=== PATIENT | male | born 1975 | race American Indian/Alaskan Native ===

== ENCOUNTER 2019-06-01 10:02 | Emergency (ER) | payer BC ==
[~2019-06-01] VITALS: Ht 190.5 cm; Wt 108.9 kg
[2019-06-01] MEDS ORDERED: ALLEGRA ALLERGY60 MG PO (10:12)
--- NOTE | 2019-06-01 13:58 | EKG ---
[facility] [address] [facility] [place], [place] [address] Signed Normal sinus rhythm Normal ECG No previous ECGs available Confirmed by KY LOUIS DO ([id number]) on 06/01/2019 1:58:22 PM Electronically Signed By: KY LOUIS DO 06/01/19 1358 PATIENT NAME: CASSY BELL Electrocardiogram DATE OF : 77 PHYSICIAN: KY LOUIS DO REPORT #: [id number] REPORT IS CONFIDENTIAL AND NOT TO BE RELEASED WITHOUT AUTHORIZATION
== END 2019-06-01 11:15 | disposition home or self-care (01) ==
LOC: ED 10:02
DX: R07.9 Chest pain, unspecified (principal); Z79.899 Other long term (current) drug therapy
CPT/HCPCS: 71045; 80053; 83735; 84484; 85025; 93005; 93010; 99285-25

== ENCOUNTER 2024-06-03 05:50 | Day surgery (SDC) | payer BC, OTHER ==
[2024-05-31 09:19] VITALS: BP 150/89
[~2024-06-03] VITALS: Ht 190.5 cm; Wt 109.1 kg
[~2024-06-03 05:50] MED LIST: ALLEGRA ALLERGY60 MG PO; MIDAZOLAM HCL 5 MG/5 ML VIAL IV PRN; fentaNYL citrate 100 MCG/2 ML VIAL IV PRN
[2024-06-03 05:59] VITALS: BP 144/85
--- NOTE | 2024-06-03 06:06 | NUR ---
FATHER WITH PT NOT SURE IF WAITING.
[2024-06-03] MEDS ORDERED: IBLOOD GLUCOSE TEST STRIP 1 EA TEST VI PRN (07:00)
[2024-06-03] MEDS ORDERED: LACTATED RINGER'S 1,000 ML IV SCH (07:00)
[2024-06-03] MEDS ORDERED: LIDOCAINE HCL 1% 5 ML SDV INJ ONE (07:00)
[2024-06-03] MEDS ORDERED: propofoL 200 MG/20 ML VIAL ONE ×2 (07:17→07:47)
[2024-06-03] MEDS ORDERED: fentaNYL citrate 100 MCG/2 ML VIAL ONE (07:17)
[2024-06-03] MEDS ORDERED: LIDOCAINE HCL 2% 5 ML SDV ONE (07:17)
--- NOTE | 2024-06-03 07:45 | NUR ---
PT GONE FOR PROCEDURE. PROVIDED PRAYER.
--- NOTE | 2024-06-03 08:05 | NUR ---
06/03/24 0805 Kimi Turner 0757 PT ARRIVED TO PACU ON 6L RESP EVEN AND UNLABORED. PT ASLEEP AND VSS.
[2024-06-03 08:24] VITALS: BP 122/85
--- NOTE | 2024-06-03 10:25 | OR ---
[facility] [address] [place], [place] [address] Signed DATE OF OPERATION: 06/03/2024 SURGEON: Glenys Farrell MD PREOPERATIVE DIAGNOSIS: Screening. POSTOPERATIVE DIAGNOSES: 1. Minimal sigmoid diverticulosis. 2. Ztqkllv-[id number] internal hemorrhoids. 3. 4 mm polyp at 6 cm in rectum. 4. 5 mm polyp at 15 cm in the rectum. 5. 7 mm polyp at 25 cm in sigmoid colon (snare). 6. 5 mm polyp at distal right colon. PROCEDURE: Colonoscopy with hot biopsy and snare polypectomy. ESTIMATED BLOOD LOSS: None. INDICATIONS: Cassy is a 48-year-old gentleman, asked to see me for his initial screening colonoscopy. He also has an umbilical hernia that he wants me to repair later this fall. He tells me he has no lower GI complaints. There is no family history of colon cancer or polyps. This would be his initial colonoscopy. In the office, I gave him a pamphlet on colonoscopy. We reviewed the nature of the test. There is risk including, but not limited to gas bloating, crampy abdominal pain, bleeding, perforation requiring surgery, and missed diagnosis. We also reviewed the need for monitored anesthesia care with propofol infusion given his full round face and his upcoming evaluation for sleep apnea along with his daily use of alcohol. He also understands an adult person has to take him home afterwards. He had expressed understanding and wished to proceed. PROCEDURE IN DETAIL: Cassy was taken into our endoscopy suite and placed in the left lateral decubitus position. He was given monitored anesthesia care with propofol infusion per our nurse rack production worker. A digital rectal exam was performed and this was unremarkable. He has good sphincter tone. No external hemorrhoids. No masses. The adult colonoscope was introduced, advanced all the way around into the cecum under direct visualization of camera without difficulty. He needed just a little extra propofol along with some Electronically Signed By: GLENYS FARRELL MD 06/03/24 1025 PATIENT NAME: CASSY BELL OPERATIVE REPORT DATE OF : 77 REPORT #: [id number] PHYSICIAN: GLENYS FARRELL MD PCP: [facility] REPORT IS CONFIDENTIAL AND NOT TO BE RELEASED WITHOUT AUTHORIZATION [facility] [address] [place], [place] [address] Signed abdominal compression in order to get the camera into the cecum itself. He was awake two or three times, but responded nicely to additional propofol boluses. His prep was quite excellent. The scope was slowly withdrawn. We took several pictures throughout for photodocumentation. The above-mentioned polyps were easily removed with the help of hot biopsy forceps. He had a small pedunculated polyp at 25 cm which we removed with the help of the snare and captured onto the scope. Once in the rectum, the scope was retroflexed and he does have minimal to moderate internal hemorrhoid columns. After this, the gas was suctioned out and colonoscope removed. Cassy tolerated the procedure quite well. RECOMMENDATIONS: I will see Cassy back in my office in 7 to 14 days to review his results. Glenys Farrell MD ALB/MODL /[id number] cc: Glenys Farrell MD [facility] Copies: GLENYS FARRELL MD [facility] ~ Electronically Signed By: GLENYS FARRELL MD 06/03/24 1025 PATIENT NAME: CASSY BELL OPERATIVE REPORT DATE OF : 77 REPORT #: [id number] PHYSICIAN: GLENYS FARRELL MD PCP: [facility] REPORT IS CONFIDENTIAL AND NOT TO BE RELEASED WITHOUT AUTHORIZATION
--- NOTE | 2024-06-09 22:59 | PATH ---
[facility] [address] [place], [place] [address] Signed SPECIMEN(S): A RECTAL POLYP @ 6 CM SPECIMEN(S): B RECTAL POLYP @ 15 CM SPECIMEN(S): C SIGMOID POLYP @ 25 CM SPECIMEN(S): D MID ASCENDING/RIGHT COLON POLYP SPECIMEN SOURCE: A. RECTAL POLYP @ 6 CM B. RECTAL POLYP @ 15 CM C. SIGMOID POLYP @ 25 CM D. MID ASCENDING/RIGHT COLON POLYP CLINICAL HISTORY: No preop or clinical information is given on requisition. FINAL PATHOLOGIC DIAGNOSIS: A. Rectum, polyp at 6 cm, biopsy: - Hyperplastic polyp. B. Rectum, polyp at 15 cm, biopsy: - Tubular adenoma, 1 fragment. - An additional fragment of rectal epithelium is within normal limits. C. Colon, sigmoid, polyp at 25 cm, biopsy: - Tubular adenoma. D. Colon, mid ascending/right, polyp, biopsy: - Tubular adenoma. COMMENT: There is no evidence of high grade dysplasia or malignancy. K MICROSCOPIC EXAMINATION: Histologic sections of all submitted blocks are examined by light microscopy. These findings, together with the gross examination, support the pathologic diagnosis. GROSS DESCRIPTION: A. The specimen, labeled and designated "Alan, rectal polyp at 6 cm," is received in formalin and consists of one resendiz soft tissue fragment, 0.2 cm. Entirely submitted in (A1). B. The specimen, labeled and designated "Alan, rectal polyp at 15 cm," is received in formalin and consists of two resendiz soft tissue fragments, ranging from 0.2 cm. Entirely submitted in (B1). PATIENT NAME: CASSY BELL PATHOLOGY DATE OF : 77 REPORT #: [id number] PHYSICIAN: NONI BUNN PCP: [facility] REPORT IS CONFIDENTIAL AND NOT TO BE RELEASED WITHOUT AUTHORIZATION [facility] [address] [place], [place] [address] Signed C. The specimen, labeled and designated "Alan, sigmoid colon polyp at 25 cm," is received in formalin and consists of one resendiz soft tissue fragment, 1.1 cm. Specimen is sectioned and entirely submitted in (C1). D. The specimen, labeled and designated "Alan, mid ascending colon polyp," is received in formalin and consists of one resendiz soft tissue fragment, 0.2 cm. Entirely submitted in (D1). JS (under the direct supervision of a pathologist) The Gross Description was prepared using a voice recognition system. The report was reviewed for accuracy; however, sound-alike word errors, addition and/or deletions may occur. If there is any question about this report, please contact Client Services. ADDITIONAL NOTES: Immunohistochemical and/or in situ hybridization studies if performed in this case included appropriate positive controls that reacted as expected. This test was developed and its performance characteristics determined by [facility]. It has not been cleared or approved by the U.S. Food and Drug Administration. The FDA has determined that such clearance or approval is not necessary. This test is used for clinical purposes. It should not be regarded as investigational or for research. [facility] is certified under the Clinical Laboratory Improvement Amendments of 1988 (CLIA) as qualified to perform high complexity clinical laboratory testing. PERFORMING LABORATORY: Technical component was performed by [facility], [address] [place] [id number] (CLIA# [id number]). Professional interpretation was performed by [facility], [address] [place] [address] (CLIA# [id number]). Diagnostician: Judson Lang MD Pathologist Electronically Signed 06/09/2024 Copies: ~ PATIENT NAME: CASSY BELL PATHOLOGY DATE OF : 77 REPORT #: [id number] PHYSICIAN: NONI BUNN PCP: [facility] REPORT IS CONFIDENTIAL AND NOT TO BE RELEASED WITHOUT AUTHORIZATION
== END 2024-06-03 08:33 | disposition home or self-care (01) ==
LOC: DS 05:50
PROVIDERS: ATTEND Colon & Rectal Surgery
PROC: 0DBE8ZX Excision of Large Intestine, Via Natural or Artificial Opening Endoscopic, Diagnostic (ICD-10-PCS; principal; 2024-06-03 07:30)
DX: Z12.11 Encounter for screening for malignant neoplasm of colon (principal); D12.5 Benign neoplasm of sigmoid colon; D12.2 Benign neoplasm of ascending colon; D12.8 Benign neoplasm of rectum; K62.1 Rectal polyp; K57.31 Diverticulosis of large intestine without perforation or abscess with bleeding; K64.8 Other hemorrhoids; K42.9 Umbilical hernia without obstruction or gangrene; E55.9 Vitamin D deficiency, unspecified; J30.2 Other seasonal allergic rhinitis; E78.5 Hyperlipidemia, unspecified; R73.03 Prediabetes; Z79.899 Other long term (current) drug therapy
CPT/HCPCS: 00812; J2001; J2704; J3010; J7121

== ENCOUNTER 2024-08-20 06:00 | Day surgery (SDC) | payer BC, OTHER ==
[2024-08-16 09:45] VITALS: BP 150/99
[~2024-08-20] VITALS: Ht 190.5 cm; Wt 109.1 kg
[~2024-08-20 06:00] MED LIST changes: +LACTATED RINGER'S 1,000 ML IV SCH; -MIDAZOLAM HCL 5 MG/5 ML VIAL IV PRN; +MULTIPLE VITAM1 EAC2 PO; +PREVIDENT 500051 GM PO; -fentaNYL citrate 100 MCG/2 ML VIAL IV PRN
[2024-08-20 06:12] VITALS: BP 162/86
[2024-08-20 06:36] VITALS: BP 147/86
[2024-08-20] MEDS ORDERED: BUPIVACAINE HCL 0.25% 50 ML MDV ONE (06:38)
[2024-08-20] MEDS ORDERED: LIDOCAINE HCL 1% 30 ML SDV ONE (06:38)
[2024-08-20] MEDS ORDERED: propofoL 200 MG/20 ML VIAL ONE (06:40)
[2024-08-20] MEDS ORDERED: SUCCINYLCHOLINE IN 0.9% NACL 200 MG/10 ML SYRINGE ONE (06:40)
[2024-08-20] MEDS ORDERED: ROCURONIUM BROMIDE 50 MG/5 ML SYR ONE (06:40)
[2024-08-20] MEDS ORDERED: SUGAMMADEX SODIUM 200 MG/2 ML ML ONE (06:40)
[2024-08-20] MEDS ORDERED: ondansetron HCL 4 MG/2 ML VIAL ONE (06:40)
[2024-08-20] MEDS ORDERED: METOCLOPRAMIDE HCL 10 MG/2 ML SDV ONE (06:40)
[2024-08-20] MEDS ORDERED: KETOROLAC TROMETHAMINE 30 MG/ML VIAL ONE (06:40)
[2024-08-20] MEDS ORDERED: DEXAMETHASONE SOD PHOS 4 MG/ML VIAL ONE (06:40)
[2024-08-20] MEDS ORDERED: FAMOTIDINE 20 MG/ 2 ML VIAL ONE (06:40)
[2024-08-20] MEDS ORDERED: fentaNYL citrate 100 MCG/2 ML VIAL ONE (06:40)
[2024-08-20] MEDS ORDERED: LACTATED RINGER'S 1,000 ML IV ONE (06:40)
[2024-08-20] MEDS ORDERED: LIDOCAINE HCL 4% 5 ML AMP ONE (06:41)
[2024-08-20] MEDS ORDERED: MIDAZOLAM HCL 2 MG/2 ML VIAL ONE (06:41)
[2024-08-20] MEDS ORDERED: CEFAZOLIN SODIUM 2 GM/20 ML SYR IV SCH (07:00)
[2024-08-20] MEDS ORDERED: HEParin SOD (PORCINE) 5,000 UNIT/0.5 ML SYR SUB-Q SCH (07:00)
[2024-08-20] MEDS ORDERED: LIDOCAINE HCL 1% 5 ML SDV INJ ONE (07:00)
[2024-08-20] MEDS ORDERED: IBLOOD GLUCOSE TEST STRIP 1 EA TEST VI PRN ×2 (07:00→08:15)
[2024-08-20] MEDS ORDERED: fentaNYL citrate 50 MCG/ML SDV IV PRN (08:15)
[2024-08-20] MEDS ORDERED: droPERidol 5 MG/2 ML VIAL IV PRN (08:15)
[2024-08-20] MEDS ORDERED: METOCLOPRAMIDE HCL 10 MG/2 ML SDV IV PRN (08:15)
[2024-08-20] MEDS ORDERED: ondansetron HCL 4 MG/2 ML VIAL IV PRN ×2 (08:15→08:45)
[2024-08-20] MEDS ORDERED: NALOXONE HCL 0.4 MG SYR IV PRN ×2 (08:15→08:45)
[2024-08-20] MEDS ORDERED: MORPHINE SULFATE 10 MG/ML VIAL IV PRN (08:15)
[2024-08-20] MEDS ORDERED: PROCHLORPERAZINE EDISYLATE 10 MG/2 ML VIAL IV PRN ×2 (08:15→08:45)
--- NOTE | 2024-08-20 08:41 | NUR ---
08/20/24 0841 Sammy Pierce 0834: PT ARRIVED TO PACU VIA STRETCHER. PT HAS ORAL AIRWAY IN PLACE. PT ON 10L VIA MASK. PT NON AROUSABLE AT THIS TIME.
[2024-08-20] MEDS ORDERED: HYDROmorphone HCL 1 MG/ML SYR IV PRN (08:45)
[2024-08-20] MEDS ORDERED: OXYCODONE HCL 5 MG TAB PO PRN (08:45)
[2024-08-20 09:11] VITALS: BP 146/93
[2024-08-20] MEDS ORDERED: OXYCODONE HCL5 MG PO (09:37)
--- NOTE | 2024-08-20 09:45 | NUR ---
patient requesting to use the restroom. patient ambulated without difficulty and denies any dizziness or unsteadiness while walking. patient was able to void 225ml. patient then ambulated back to room 6 without difficulty. Patient requesting pain medication. his pain is a 4/10 but does not want it to get worse.
--- NOTE | 2024-08-20 09:52 | NUR ---
patient medicated with 5mg Oxycodone.
--- NOTE | 2024-08-20 10:01 | NUR ---
patient allowed to get dressed at this time.
--- NOTE | 2024-08-20 10:10 | NUR ---
Discharge instructions reveiwed with patient in detail. We went over pain medicine and to not drive while taking narcotics. Reasons to call Dr. Lopez or to go to the ER reviewed and he expressed understanding. 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 patient taken to car via wheelchair where sim is to take her home.
[2024-08-20 10:12] VITALS: BP 154/91
[2024-08-20] MEDS ORDERED: SEVOFLURANE 250 ML BTL INH ONE (11:52)
--- NOTE | 2024-08-23 06:59 | OR ---
[facility] [address] [place], [place] [address] Signed DATE OF OPERATION: 08/20/2024 SURGEON: Glenys Farrell MD PREOPERATIVE DIAGNOSIS: Reducible umbilical hernia (10 mm). POSTOPERATIVE DIAGNOSIS: Reducible umbilical hernia (10 mm). PROCEDURE: Primary umbilical herniorrhaphy with round intraabdominal 4.3 cm Ventralex mesh. ESTIMATED BLOOD LOSS: None. INDICATIONS: Cassy is a 48-year-old gentleman, asked to see me for his umbilical hernia. We have already performed his screening colonoscopy. He has a small but reducible and tender umbilical hernia. It turned out to be about 10 mm in diameter. I had given him a brochure on hernias. We went through it page by page. He understands the difference between a primary suture repair and a mesh repair. We reviewed the expected intraop and postop course. There is risk including, but not limited to bleeding, infection, scarring, change in contour of the skin, damage to bowel, infection of mesh requiring removal, recurrent hernias and chronic pain. He had expressed understanding and wished to proceed. PROCEDURE IN DETAIL: I met with Cassy in our preop area. We both agreed on the umbilical hernia. We marked it appropriately. After this, we took Cassy to the operating room and placed him in the supine position under general endotracheal tube anesthesia. He was given preoperative antibiotics along with subcutaneous heparin. SCDs were utilized. He was then prepped and draped in the usual sterile fashion. A standard infraumbilical transverse incision was made and carried down around the umbilicus bluntly and with the cautery. We the umbilicus in the hernia sac from the fascial defect with the help of the cautery. We had already reduced the omentum back inside the abdomen. The fascial defect was about 10 mm. We therefore chose our round 4.3 cm Ventralex mesh. We placed it inside the abdomen, brought up, flushed against the posterior abdominal wall. We closed the fascial defect transversely with interrupted [id number] and simple #1 Prolene sutures. We cut the tab, flushed with the abdominal wall. We injected local Electronically Signed By: GLENYS FARRELL MD 08/23/24 0659 PATIENT NAME: CASSY BELL OPERATIVE REPORT DATE OF : 77 REPORT #: [id number] PHYSICIAN: GLENYS FARRELL MD PCP: [facility] PAC REPORT IS CONFIDENTIAL AND NOT TO BE RELEASED WITHOUT AUTHORIZATION [facility] [address] [place], [place] [address] Signed anesthetic into the abdominal wall and subcutaneous tissues. The umbilical skin was brought back down to the midline fascia with an interrupted 2-0 PDS suture. The dermis was reapproximated with interrupted 3-0 subcuticular Monocryl sutures. The skin edges were reapproximated with a running 5-0 fast absorbing plain gut suture. Dry gauze and tape were then applied. Cassy was then awakened from his anesthesia, extubated in the OR, and taken to recovery room in stable condition. Glenys Farrell MD ALB/MODL /[id number] cc: [facility] Glenys Farrell MD Copies: [facility] GLENYS FARRELL MD ~ Electronically Signed By: GLENYS FARRELL MD 08/23/24 0659 PATIENT NAME: CASSY BELL OPERATIVE REPORT DATE OF : 77 REPORT #: [id number] PHYSICIAN: GLENYS FARRELL MD PCP: [facility] PAC REPORT IS CONFIDENTIAL AND NOT TO BE RELEASED WITHOUT AUTHORIZATION
== END 2024-08-20 10:21 | disposition home or self-care (01) ==
LOC: DS 06:00
PROVIDERS: ATTEND Colon & Rectal Surgery
PROC: 0WUF0JZ Supplement Abdominal Wall with Synthetic Substitute, Open Approach (ICD-10-PCS; principal; 2024-08-20 07:30)
DX: K42.9 Umbilical hernia without obstruction or gangrene (principal); E78.5 Hyperlipidemia, unspecified; R73.03 Prediabetes; E55.9 Vitamin D deficiency, unspecified; K63.5 Polyp of colon; K62.1 Rectal polyp; K64.8 Other hemorrhoids; K57.30 Diverticulosis of large intestine without perforation or abscess without bleeding; Z79.899 Other long term (current) drug therapy
CPT/HCPCS: 00750; A9270; C1781; J0330; J0690; J1100; J1644; J1885; J2250; J2405; J2704; J2765; J3010; J3490; J7121